=== PATIENT | male | born 1955 | race African-American/Black ===

== ENCOUNTER 2022-05-08 14:25 | Emergency (ER) | payer OTHER ==
[~2022-05-08] VITALS: Ht 177.8 cm; Wt 90.7 kg
[2022-05-08 14:33] VITALS: BP 138/79
--- NOTE | 2022-05-08 16:36 | NUR ---
TO ER BED 6
[2022-05-08 17:07] LABS: EOSINOPHILS # (AUTO) 0.1 K/uL (0-0.4); EOSINOPHILS % (AUTO) 1.3 % (0.0-4.0); HEMATOCRIT 43.5 % (36-52); HEMOGLOBIN 14.6 g/dL (12.0-18.0); LYMPHOCYTES # (AUTO) 1.5 K/uL (2.0-11.5); MEAN CORPUSCULAR HEMOGLOBIN 31 pg (27-31); MEAN CORPUSCULAR HGB CONC 34 g/dL (33-37); MEAN CORPUSCULAR VOLUME 92.5 fL (80-94); MONOCYTES # (AUTO) 0.2 K/uL (0.8-1.0); MONOCYTES % (AUTO) 4.5 % (1.7-9.3); NEUTROPHILS # (AUTO) 2.2 K/uL (1.8-7.7); NEUTROPHILS % (AUTO) 55.2 % (42.2-75.2); PLATELET COUNT (AUTO) 212 K/uL (140-450); RED CELL DISTRIBUTION WIDTH 12.6 % (11.6-13.7); WHITE BLOOD COUNT (AUTO) 4.1 K/uL (4.8-10.8)
[2022-05-08 17:09] LABS: APPEARANCE,URINE CLEAR (CLEAR); BILIRUBIN,URINE NEGATIVE (NEGATIVE); BLOOD, URINE NEGATIVE (NEGATIVE); COLOR,URINE YELLOW (YELLOW); LEUKOCYTE ESTERASE ,URINE NEGATIVE (NEGATIVE); NITRITE, URINE NEGATIVE (NEGATIVE); UGLUCOSE NEGATIVE (NEGATIVE)
--- NOTE | 2022-05-08 17:16 | NUR ---
Dr. Zhao evaluating patient at bedside.
[2022-05-08 17:29] LABS: ALBUMIN 4.2 g/dL (3.4-5.0); ANION GAP 13.4 (8-16); CARBON DIOXIDE 28.2 mmol/L (21-32); CREATININE 1.1 mg/dL (0.6-1.3); POTASSIUM 3.6 mmol/L (3.5-5.1); TOTAL BILIRUBIN 0.5 mg/dL (0.0-1.0)
--- NOTE | 2022-05-08 18:21 | NUR ---
Patient returned from CT.
[2022-05-08] MEDS ORDERED: IBUP-2213 PO (19:08)
--- NOTE | 2022-05-08 19:20 | NUR ---
Patient discharged with v/s stable. Written and verbal after care instructions given and explained. Patient verbalized understanding. Ambulatory with steady gait. All questions addressed prior to discharge. Advised to follow up with PMD.
== END 2022-05-08 19:20 | disposition home or self-care (01) ==
LOC: MED 14:25
DX: N50.89 Other specified disorders of the male genital organs (principal)
CPT/HCPCS: 36415; 74177; 76870; 80053; 81003; 83880; 84484; 85025; 99285; Q0092; Q9967